=== PATIENT | female | born 1980 | race Caucasian/White ===

== ENCOUNTER 2018-03-21 21:45 | Emergency (ER) | payer OTHER ==
[~2018-03-21] VITALS: Ht 149.8 cm; Wt 108.9 kg
[~2018-03-21 21:45] MED LIST: AMOXICILLIN500 M2 PO; AMOXICILLIN500 MG PO; AUGMENTIN 875875 MG PO; BACTRIM DS 8001 TA1 PO; CELEXA40 MG PO; CIPROFLOXACIN500 MG PO; CLARITIN-D 10 M1 T21 PO; CLINDAMYCIN150 MG PO; DELTASONE10 MG PO; DICLOFENAC POTA50 MG PO; FLONASE ALLERG9.9 ML NAS; FLOVENT 110 M110 MCG INH; HYDROCODONE BIT1 T11 PO; IMODIUM2 MG PO; KEFLEX500 MG PO; LOMOTIL 0.025 M1 TA1 PO; MOTRIN600 MG PO; MOTRIN800 MG PO; NICODERM C21 MG/24 H TD; NKHM; PHENERGAN25 M1 PO; PREDNICOT20 MG PO; PREDNISONE10 MG PO; PROAIR HFA0.09 MG/AC IH; ROBITUSSIN AC 110 ML PO; TESSALON PERLE100 M1 PO; TESSALON PERLE200 MG PO; TRAMADOL HCL50 MG PO; TRAZODONE50 MG PO; TRIMOX500 MG PO; ULTRAM50 MG PO; VENTOLIN H0.09 MG/AC INH; VIBRAMYCIN100 MG PO; VICODIN 500 MG-1 TAB PO; ZITHROMAX Z PA250 MG PO; ZITHROMAX500 MG PO; ZOFRAN ODT4 MG SL; ZOFRAN4 MG PO
[2018-03-21 22:14] LABS: BASO % 0.3 % (0.0-1.0); EOS # 0.1 10*3/uL (0.0-0.4); EOS % 0.9 % (1.0-4.0); HEMATOCRIT 41.7 % (37.0-47.0); HEMOGLOBIN 13.9 g/dl (12.0-16.0); LYMPH # 3.3 10*3/uL (1.3-4.4); MEAN CELL VOLUME 86.2 fl (81.0-99.0); MEAN CORPUSCULAR HGB 28.7 pg (27.0-31.0); MEAN CORPUSCULAR HGB CONC 33.3 g/dl (33.0-37.0); MEAN PLATELET VOLUME 11.2 fl (9.6-12.3); MONO # 0.8 10*3/uL (0.1-1.0); MONO % 5.3 % (3.0-9.0); NEUT # 10.5 10*3/uL (2.3-7.9); NEUT % 71.2 % (47.0-73.0); PLATELET COUNT AUTOMATED 293 10*3/uL (130-400); RED BLOOD COUNT 4.84 10*6/uL (4.10-5.10); RED CELL DISTRI WIDTH 13.4 % (0-14.5); WHITE BLOOD COUNT 14.8 10*3/uL (4.8-10.8)
[2018-03-21 22:33] LABS: ALBUMIN 3.2 gm/dl (3.1-4.5); ALKALINE PHOSPHATASE 84 U/L (45-117); BUN 12 mg/dl (7-24); CHLORIDE 109 mmol/L (98-107); CREATININE 1.09 mg/dL (0.55-1.02); SGOT/AST 18 IU/L (3-35); SGPT/ALT 41 U/L (12-78); SODIUM 142 mmol/L (136-145)
[2018-03-21 23:20] LABS: BILIRUBIN NEGATIVE (NEGATIVE); BLOOD NEGATIVE (NEGATIVE); CLARITY CLEAR (CLEAR); COLOR YELLOW (YELLOW); GLUCOSE NEGATIVE (NEGATIVE); KETONE NEGATIVE (NEGATIVE); LEUKO ESTERASE NEGATIVE (NEGATIVE); NITRITE NEGATIVE (NEGATIVE); SPECIFIC GRAVITY 1.025 (1.005-1.030); UROBILINOGEN 0.2 E.U./dl (0.2-1.0)
[2018-03-21 23:25] VITALS: BP 110/59
[2018-03-21 23:28] LABS: EPITHELIAL CELLS 25-30
[2018-03-21 23:29] LABS: BACTERIA TRACE; RBC 0-2 rbc/hpf (0-2)
== END 2018-03-22 00:18 | disposition home or self-care (01) ==
LOC: ED 21:45
PROVIDERS: Nurse Practitioner Family
DX: H53.8 Other visual disturbances (principal); R51 Headache; E66.01 Morbid (severe) obesity due to excess calories; Z88.1 Allergy status to other antibiotic agents; Z79.2 Long term (current) use of antibiotics; Z79.899 Other long term (current) drug therapy

== ENCOUNTER 2018-05-27 10:35 | Emergency (ER) | payer OTHER ==
[2018-05-27 10:39] VITALS: BP 122/82
== END 2018-05-27 12:45 | disposition home or self-care (01) ==
LOC: ED 10:35
DX: S99.911A Unspecified injury of right ankle, initial encounter (principal); S89.91XA Unspecified injury of right lower leg, initial encounter; Z88.1 Allergy status to other antibiotic agents; Z79.899 Other long term (current) drug therapy; W00.0XXA Fall on same level due to ice and snow, initial encounter; Y93.89 Activity, other specified; Y92.89 Other specified places as the place of occurrence of the external cause; Y99.8 Other external cause status

== ENCOUNTER 2021-04-22 16:33 | Emergency (ER) | payer OTHER ==
[~2021-04-22] VITALS: Ht 124.4 cm; Wt 99.8 kg
[2021-04-22 17:48] VITALS: BP 108/70
[2021-04-22] MEDS ORDERED: PROVENTIL HFA6.7 GM INH (22:44)
[2021-04-22] MEDS ORDERED: PREDNISONE20 M1 PO (22:44)
== END 2021-04-22 22:43 | disposition home or self-care (01) ==
LOC: ED 16:33
DX: U07.1 COVID-19 (principal)

== ENCOUNTER 2022-11-28 14:19 | Emergency (ER) | payer OTHER ==
[~2022-11-28 14:19] MED LIST changes: +PREDNISONE20 M1 PO; +PROVENTIL HFA6.7 GM INH
[2022-11-28 14:25] VITALS: BP 113/70
[2022-11-28] MEDS ORDERED: PREDNISONE20 M1 PO ×2 (15:25→15:26)
[2022-11-28] MEDS ORDERED: CEPHALEXIN500 M1 PO (15:26)
== END 2022-11-28 15:33 | disposition home or self-care (01) ==
LOC: ED
DX: T63.441A Toxic effect of venom of bees, accidental (unintentional), initial encounter (principal); L53.0 Toxic erythema; Z88.1 Allergy status to other antibiotic agents; Z79.2 Long term (current) use of antibiotics; Z79.899 Other long term (current) drug therapy; Y92.89 Other specified places as the place of occurrence of the external cause

== ENCOUNTER 2022-12-06 23:52 | Emergency (ER) | payer OTHER ==
[~2022-12-06] VITALS: Ht 149.8 cm; Wt 79.4 kg
[~2022-12-06 23:52] MED LIST changes: +CEPHALEXIN500 M1 PO
[2022-12-07 00:18] VITALS: BP 120/69
[2022-12-07 00:26] LABS: BASO # 0.1 10*3/uL (0.0-0.1); BASO % 0.4 % (0.0-1.0); EOS # 0.2 10*3/uL (0.0-0.4); EOS % 1.6 % (1.0-4.0); HEMATOCRIT 45.7 % (37.0-47.0); LYMPH # 4.4 10*3/uL (1.3-4.4); LYMPH % 36.3 % (27.0-41.0); MEAN CELL VOLUME 85.4 fl (81.0-99.0); MEAN CORPUSCULAR HGB 28.6 pg (27.0-31.0); MEAN CORPUSCULAR HGB CONC 33.5 g/dl (33.0-37.0); MEAN PLATELET VOLUME 11.1 fl (9.6-12.3); MONO # 0.9 10*3/uL (0.1-1.0); MONO % 7.6 % (3.0-9.0); NEUT # 6.6 10*3/uL (2.3-7.9); NEUT % 53.9 % (47.0-73.0); PLATELET COUNT AUTOMATED 306 10*3/uL (130-400); RED BLOOD COUNT 5.35 10*6/uL (4.10-5.10); RED CELL DISTRI WIDTH 13.3 % (0-14.5); WHITE BLOOD COUNT 12.2 10*3/uL (4.8-10.8)
[2022-12-07 00:57] LABS: ACT PARTIAL THROMBO TIME 28.4 SECONDS (20.0-32.1)
[2022-12-07 01:01] LABS: ALKALINE PHOSPHATASE 90 U/L (46-116); BUN 10 mg/dl (9-23); CHLORIDE 106 mmol/L (98-107); POTASSIUM 3.8 mmol/L (3.4-5.1); SGPT/ALT 24 U/L (10-49); TOTAL PROTEIN 6.8 gm/dL (6.0-8.0)
[2022-12-07] MEDS ORDERED: PREDNISONE10 M1 PO (03:34)
== END 2022-12-07 03:49 | disposition home or self-care (01) ==
LOC: ED 23:52
PROVIDERS: Emergency Medicine
DX: J45.901 Unspecified asthma with (acute) exacerbation (principal); Z88.8 Allergy status to other drugs, medicaments and biological substances

== ENCOUNTER 2023-03-14 20:23 | Emergency (ER) | payer OTHER ==
[~2023-03-14] VITALS: Ht 152.4 cm; Wt 73.5 kg
[~2023-03-14 20:23] MED LIST changes: +PREDNISONE10 M1 PO
[2023-03-14 20:44] VITALS: BP 102/65
== END 2023-03-14 23:56 | disposition home or self-care (01) ==
LOC: ED 20:23
DX: U07.1 COVID-19 (principal); Z88.8 Allergy status to other drugs, medicaments and biological substances; F17.290 Nicotine dependence, other tobacco product, uncomplicated